=== PATIENT | male | born 1955 | race Caucasian/White ===

== ENCOUNTER 2022-11-15 12:52 | Inpatient (IN) | payer MEDICARE ==
[~2022-11-15] VITALS: Ht 180.3 cm; Wt 81.2 kg
[2022-11-15] MEDS ORDERED: MAGN400T2 PO (13:32)
[2022-11-15] MEDS ORDERED: FURO40TA2 PO (13:32)
[2022-11-15] MEDS ORDERED: POTA-165 PO (13:32)
[2022-11-15] MEDS ORDERED: DILT180C95 PO (13:32)
[2022-11-15] MEDS ORDERED: NS 1,000 ML IV SCH (14:40)
[2022-11-15] MEDS ORDERED: MORPHINE 2 MG/ML 1ML VIAL IV ONE (14:40)
[2022-11-15] MEDS ORDERED: methylPREDNISolone 125MG 2ML VIAL IV STA (14:48)
[2022-11-15 14:50] LABS: ALBUMIN 3.3 G/DL (3.2-5.2); BILIRUBIN,DIRECT 0.6 MG/DL (<0.4); BILIRUBIN,TOTAL 1.2 MG/DL (0.3-1.2); TOTAL PROTEIN 7.4 G/DL (5.7-8.2)
[2022-11-15 14:52] LABS: BASO # 0.1 10^3/uL (0.0-0.2); BASO % 0.4 % (0.0-1.0); EOS # 0.1 10^3/uL (0.0-0.5); EOS % 0.8 % (0.0-3.0); HEMATOCRIT 42.3 % (42.0-52.0); HEMOGLOBIN 13.1 g/dl (13.5-17.5); LYMPH # 1.4 10^3/uL (1.5-5.0); LYMPH % 9.2 % (24.0-44.0); MEAN CORPUSCULAR HEMOGLOBIN 29.4 pg (27.0-33.0); MEAN CORPUSCULAR VOLUME 94.8 fl (80.0-96.0); MONO # 0.6 10^3/uL (0.0-0.8); MONO % 3.7 % (2.0-8.0); NEUTROPHILS # 12.7 10^3/uL (1.5-8.5); NEUTROPHILS % 85.3 % (36.0-66.0); RED BLOOD COUNT 4.46 10^6/uL (4.30-6.10); WHITE BLOOD COUNT 14.8 10^3/uL (4.0-10.0)
[2022-11-15 15:07] LABS: RSV AMPLIFICATION NEGATIVE (NEGATIVE)
[2022-11-15 15:27] LABS: PLATELET COUNT, AUTOMATED 81 10^3/uL (150-450)
[2022-11-15] MEDS ORDERED: NS 500 ML IV ONE (15:40)
[2022-11-15 16:14] LABS: INR 1.11; PARTIAL THROMBOPLASTIN TIME 27.1 SECONDS (24.8-34.2); PROTHROMBIN TIME 14.5 SECONDS (12.5-14.5)
[2022-11-15 16:35] LABS: CK-MB VALUE MASS 3.1 NG/ML (<3.6)
[2022-11-15 16:36] LABS: MB/CK RELATIVE INDEX 8.37 (< OR =4)
[2022-11-15] MEDS ORDERED: ALBU2.5V10 INH (17:34)
[2022-11-15] MEDS ORDERED: NITR0.4S14 PO (17:34)
[2022-11-15] MEDS ORDERED: IPRA0.00 INH (17:34)
[2022-11-15] MEDS ORDERED: ALBU8.5H INH (17:34)
[2022-11-15] MEDS ORDERED: PANT40TA29 PO (17:34)
[2022-11-15] MEDS ORDERED: DRON400T PO (17:34)
[2022-11-15] MEDS ORDERED: ELIQ2.5T PO (17:34)
[2022-11-15] MEDS ORDERED: HOME MED LIST COMPLETE! XX SCH (17:35)
[2022-11-15 18:06] LABS: CK-MB VALUE MASS 3.2 NG/ML (<3.6)
[2022-11-15 18:07] LABS: MB/CK RELATIVE INDEX 9.14 (< OR =4)
[2022-11-15 18:47] VITALS: BP 155/90; TEMP 98.7; O2SAT 98
[2022-11-15] MEDS ORDERED: NS 1,000 ML IV ONE (18:50)
[2022-11-15] MEDS ORDERED: METOPROLOL TART 25 MG TABLET PO ONE (18:50)
[2022-11-15] MEDS ORDERED: LR 1,000 ML IV SCH (19:10)
[2022-11-15] MEDS: MORPHINE 4 MG/ML 1ML VIAL IV PRN ×2 (19:54→23:17)
[2022-11-15 20:00] VITALS: BP 159/97; TEMP 96.4; O2SAT 100
[2022-11-15] MEDS: IPRATROPIUM 0.5MG/ALBUTEROL 2.5MG INH SOL UD 3ML (DUONEB) NEB SCH ×2 (20:00→22:00)
[2022-11-15] MEDS ORDERED: IPRATROPIUM 0.5MG/ALBUTEROL 2.5MG INH SOL UD 3ML (DUONEB) NEB SCH (20:00)
[2022-11-15] MEDS: METOPROLOL 5 MG/5 ML VIAL IV SCH ×3 (20:13→21:39)
[2022-11-15] MEDS ORDERED: PANTOPRAZOLE 40MG VIAL IV SCH (21:00)
[2022-11-15] MEDS ORDERED: dilTIAZem **CD** 180MG CAP PO SCH (21:00)
[2022-11-15] MEDS ORDERED: METOPROLOL 5 MG/5 ML VIAL IV SCH (21:35)
[2022-11-15 22:23] VITALS: BP 131/81
[2022-11-15] MEDS: DRONEDARONE 400 MG TAB (MULTAQ) PO SCH (22:23)
[2022-11-15 23:38] VITALS: BP 147/71; TEMP 96.4; O2SAT 91
[2022-11-16] VITALS (12 sets, daily range): BP systolic 101–188; BP diastolic 56–91; TEMP 95.3–97.7; O2SAT 78–100
[2022-11-16] MEDS: IPRATROPIUM 0.5MG/ALBUTEROL 2.5MG INH SOL UD 3ML (DUONEB) NEB SCH ×5 (03:02→19:14)
[2022-11-16] MEDS: MORPHINE 4 MG/ML 1ML VIAL IV PRN ×2 (03:51→08:11)
[2022-11-16 06:00] LABS: BASO % 0.1 % (0.0-1.0); HEMATOCRIT 39.8 % (42.0-52.0); HEMOGLOBIN 11.7 g/dl (13.5-17.5); LYMPH # 0.5 10^3/uL (1.5-5.0); LYMPH % 3.6 % (24.0-44.0); MEAN CORPUSCULAR HEMOGLOBIN 28.7 pg (27.0-33.0); MEAN CORPUSCULAR HGB CONC 29.4 g/dl (32.0-36.5); MEAN CORPUSCULAR VOLUME 97.5 fl (80.0-96.0); MONO # 0.2 10^3/uL (0.0-0.8); MONO % 1.1 % (2.0-8.0); NEUTROPHILS # 12.4 10^3/uL (1.5-8.5); NEUTROPHILS % 94.6 % (36.0-66.0); RED BLOOD COUNT 4.08 10^6/uL (4.30-6.10); WHITE BLOOD COUNT 13.1 10^3/uL (4.0-10.0)
[2022-11-16 06:08] LABS: PLATELET COUNT, AUTOMATED 89 10^3/uL (150-450)
[2022-11-16 06:17] LABS: CALCIUM LEVEL 7.9 MG/DL (8.3-10.6); CREATININE FOR GFR 2.13 MG/DL (0.70-1.30); MAGNESIUM LEVEL 1.9 MG/DL (1.8-2.4); POTASSIUM SERUM 5.2 MMOL/L (3.5-5.1)
[2022-11-16] MEDS ORDERED: NS 1,000 ML IV SCH (07:15)
[2022-11-16] MEDS: DRONEDARONE 400 MG TAB (MULTAQ) PO SCH (09:00)
[2022-11-16] MEDS ORDERED: cefTRIAXone SOD 1 GM in D5W MINI-BAG PLUS 50 ML IV SCH (10:00)
[2022-11-16] MEDS ORDERED: metroNIDAZOLE 500 MG in IV 1 EA IV SCH (10:00)
[2022-11-16] MEDS: metroNIDAZOLE 500 MG in IV 1 EA IV SCH ×2 (11:50→18:13)
[2022-11-16] MEDS ORDERED: NS 1,000 ML IV ONE ×2 (13:50→19:20)
[2022-11-16] MEDS ORDERED: MORPHINE 4 MG/ML 1ML VIAL IV PRN ×2 (13:50→20:00)
[2022-11-16 20:28] LABS: VENOUS BASE EXCESS -23.1 (-2.0-2.0); VENOUS O2 SATURATION 94.2 % (60.0-80.0); VENOUS PARTIAL PRESSURE O2 98.2 mmHg (30.0-50.0); VENOUS PH 6.964 UNITS (7.330-7.430); VENOUS STANDARD HCO3 8.1 MMOL/L; VENOUS TOTAL CO2 9.1 MMOL/L (24.0-28.0)
[2022-11-16 20:40] LABS: ABG BASE EXCESS -27.9 (-2.0-2.0); ABG HCO3 4.8 MMOL/L (22.0-26.0); ABG O2 SATURATION 97.7 % (95.0-99.0); ABG PARTIAL PRESSURE CO2 27.4 mmHg (35.0-45.0); ABG PARTIAL PRESSURE O2 150.8 mmHg (75.0-100.0); ABG STANDARD HCO3 5.6 MMOL/L. (22.0-26.0); ABG TOTAL CO2 5.6 MMOL/L (23.0-31.0)
[2022-11-16] MEDS ORDERED: SODIUM BICARBONATE 8.4% INJ 50ML SYRINGE IV STA ×2 (20:55→21:01)
[2022-11-16] MEDS ORDERED: TAMSULOSIN 0.4 MG CAP PO SCH (21:00)
[2022-11-16] MEDS ORDERED: LIDOCAINE 2% 100MG/5ML SDV (FOR ANES.) As Ordered ONE (21:11)
[2022-11-16] MEDS ORDERED: SUCCINYLCHOLINE 100MG/5ML SYRINGE As Ordered ONE (21:11)
[2022-11-16] MEDS ORDERED: ROCURONIUM BROMIDE 50MG/5ML VIAL As Ordered ONE (21:11)
[2022-11-16] MEDS ORDERED: fentaNYL 100 MCG/2 ML INJECTION As Ordered ONE (21:11)
[2022-11-16] MEDS ORDERED: MIDAZOLAM INJ 2MG/2ML VIAL As Ordered ONE (21:11)
[2022-11-16] MEDS ORDERED: propofoL 200 MG/20 ML VIAL As Ordered ONE (21:11)
[2022-11-16] MEDS ORDERED: ONDANSETRON 4MG 2ML VIAL As Ordered ONE (21:11)
[2022-11-16] MEDS ORDERED: DEXTROSE 50% 50ML SYRINGE As Ordered ONE (21:39)
[2022-11-16] MEDS ORDERED: GLUCOSE 4GM CHEW TABLET PO PRN (21:40)
[2022-11-16] MEDS ORDERED: GLUCAGON INJ 1MG VIAL SC PRN (21:40)
[2022-11-16] MEDS: DEXTROSE 50% 50ML SYRINGE IV PRN ×2 (21:45→22:12)
[2022-11-16] MEDS ORDERED: CALCIUM GLUCONATE 1,000 MG in D5W MINI-BAG PLUS 100 ML IV ONE (21:45)
[2022-11-16] MEDS ORDERED: NOREPINEPHRINE 4MG/4ML AMP As Ordered ONE (21:52)
[2022-11-16] MEDS ORDERED: VASOPRESSIN INJ 20UNITS/ML 1ML VIAL As Ordered ONE (21:53)
[2022-11-16 21:54] LABS: ALT/SGPT 2686 U/L (7.0-40); AST/SGOT > 6000 U/L (<34)
[2022-11-16 21:56] LABS: BLOOD UREA NITROGEN 45 MG/DL (9-23); CARBON DIOXIDE LEVEL < 10.0 MMOL/L (20-31); CHLORIDE LEVEL 108 MMOL/L (98-107); CREATININE FOR GFR 2.97 MG/DL (0.70-1.30); GLOMERULAR FILTRATION RATE 22.5 (>49); GLUCOSE, FASTING 29 MG/DL (74-106); POTASSIUM SERUM 6.5 MMOL/L (3.5-5.1); SODIUM LEVEL 143 MMOL/L (136-145)
[2022-11-16 21:57] LABS: ALBUMIN 2.7 G/DL (3.2-5.2); ALKALINE PHOSPHATASE 153 U/L (46-116); BILIRUBIN,DIRECT 5.2 MG/DL (<0.4); BILIRUBIN,TOTAL 9.8 MG/DL (0.3-1.2); TOTAL PROTEIN 6.2 G/DL (5.7-8.2)
[2022-11-16] MEDS ORDERED: SODIUM BICARBONATE 150 MEQ in STERILE WATER LITER BAG 1,000 ML IV SCH (22:00)
[2022-11-17] MEDS: IPRATROPIUM 0.5MG/ALBUTEROL 2.5MG INH SOL UD 3ML (DUONEB) NEB SCH
[2022-11-17] MEDS ORDERED: SCOPOLAMINE 1MG TRANSDERMAL PATCH TOP PRN
[2022-11-17 00:01] VITALS: BP 128/71; O2SAT 90
[2022-11-17 00:17] VITALS: BP 115/56; O2SAT 95
[2022-11-17 01:06] LABS: CALCIUM LEVEL 9.3 MG/DL (8.3-10.6); CREATININE FOR GFR 3.14 MG/DL (0.70-1.30); GLOMERULAR FILTRATION RATE 21.1 (>49); POTASSIUM SERUM 5.8 MMOL/L (3.5-5.1)
[2022-11-17] MEDS ORDERED: EPINEPHrine 1MG/10ML SYRINGE 1.5IN ONE (01:48)
[2022-11-17] MEDS ORDERED: CALCIUM CHLORIDE 10% 1 GM/10 ML SYR ONE (01:48)
[2022-11-17] MEDS ORDERED: DEXTROSE 50% 50ML SYRINGE ONE (01:48)
== END 2022-11-17 01:42 | disposition expired | DRG 388 ==
LOC: EDBD 12:52 → M ED 12:52 → M ED INP 16:52 → M PCU 18:31 → M ICU 11-16 22:20
PROVIDERS: ADMIT Internal Medicine Nephrology; ATTEND Internal Medicine Nephrology
PROC: 5A1935Z Respiratory Ventilation, Less than 24 Consecutive Hours (ICD-10-PCS; principal; 2022-11-17)
DX: K56.7 Ileus, unspecified (principal); N17.0 Acute kidney failure with tubular necrosis; K72.00 Acute and subacute hepatic failure without coma; G93.41 Metabolic encephalopathy; J96.11 Chronic respiratory failure with hypoxia; I48.20 Chronic atrial fibrillation, unspecified; E87.20 Acidosis, unspecified; Z66 Do not resuscitate; J45.909 Unspecified asthma, uncomplicated; J44.9 Chronic obstructive pulmonary disease, unspecified; E11.649 Type 2 diabetes mellitus with hypoglycemia without coma; I10 Essential (primary) hypertension; Z93.3 Colostomy status; K21.9 Gastro-esophageal reflux disease without esophagitis; N40.0 Benign prostatic hyperplasia without lower urinary tract symptoms; R29.6 Repeated falls; M16.12 Unilateral primary osteoarthritis, left hip; M81.0 Age-related osteoporosis without current pathological fracture; F41.9 Anxiety disorder, unspecified; R91.1 Solitary pulmonary nodule; M51.36 Other intervertebral disc degeneration, lumbar region; K59.00 Constipation, unspecified; Z90.49 Acquired absence of other specified parts of digestive tract; B18.2 Chronic viral hepatitis C; Z79.01 Long term (current) use of anticoagulants; Z79.899 Other long term (current) drug therapy; Z20.822 Contact with and (suspected) exposure to COVID-19